=== PATIENT | female | born 1970 | race African-American/Black ===

== ENCOUNTER 2017-04-21 18:21 | Emergency (ER) | payer MEDICAID ==
[~2017-04-21] VITALS: Ht 162.6 cm; Wt 107.0 kg
[2017-04-21 18:24] VITALS: BP 177/97; PULSE 85; TEMP 97.9; O2SAT 98
[2017-04-21] MEDS ORDERED: CLIN1GEL (18:40)
[2017-04-21] MEDS ORDERED: SIMV10TA PO (18:40)
[2017-04-21] MEDS ORDERED: PARO20TA2 PO (18:40)
[2017-04-21] MEDS ORDERED: AMLO10TA2 PO (18:40)
[2017-04-21] MEDS ORDERED: ALLE10TA PO (18:40)
[2017-04-21] MEDS ORDERED: METO25TA3 PO (18:40)
--- NOTE | 2017-04-21 18:57 | PD ---
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 The patient denies fevers, chills, nausea, vomiting, abdominal pain, dysuria, hematuria, back pain. Last menstrual period 04/15/17. She endorses unprotected sex with a single male partner. She states she was treated for gonorrhea and chlamydia approximately one month ago. She states that her partner was treated at the same time. PFSH Past Medical History Depression: Yes High Cholesterol: Yes Hypertension: Yes ?: Not LMP: 04/11/17 Past Surgical History Surgical History: No Previous Surgery Social History Alcohol Use: Yes (OCC) Tobacco Use: No Substance Use: No Allergies-Medications (Allergen,Severity, Reaction): Coded Allergies: diphenhydramine (Verified Allergy, Severe, Swelling, 04/21/17) LIP SWELLING lisinopril (Verified Allergy, Severe, Swelling, 04/21/17) Reported Meds & Prescriptions Reported Meds & Active Scripts Active Reported Paroxetine (Paroxetine HCl) 20 Mg Tab 20 Mg PO DAILY Clinda-Benzoyl Perox 1-5% Pump (Clindamycin Phos/Benzoyl Perox) 1 %-5 % Gel.w.pump Allergy Relief (Loratadine) 10 Mg Tab 10 Mg PO DAILY PRN Amlodipine (Amlodipine Besylate) 10 Mg Tab 10 Mg PO DAILY Simvastatin 10 Mg Tab 10 Mg PO DAILY Metoprolol Tartrate 25 Mg Tab 25 Mg PO DAILY Review of Systems Except as stated in HPI: all other systems reviewed are Neg Physical Exam Narrative GENERAL: Well-nourished, well-developed black female in no acute distress. SKIN: Focused skin assessment warm/dry. HEAD: Normocephalic. EYES: No scleral icterus. No injection or drainage. NECK: Supple, trachea midline. No JVD or lymphadenopathy. CARDIOVASCULAR: Regular rate and rhythm without murmurs, gallops, or rubs. RESPIRATORY: Breath sounds clear and equal bilaterally. No accessory muscle use. GASTROINTESTINAL: Abdomen soft, non-tender, nondistended. No suprapubic tenderness. Active bowel sounds. GENITOURINARY: Normal external genitalia without lesions or erythema. Vaginal vault copious, thick, frothy white drainage.Cervical os was closed without drainage. No cervical motion tenderness. Uterus nontender and nonenlarged. Bilateral adnexa nontender without masses. MUSCULOSKELETAL: No cyanosis, or edema. BACK: Nontender without obvious deformity. No CVA tenderness. Data Data Last Documented VS Vital Signs Date Time Temp Pulse Resp B/P (MAP) Pulse Ox O2 Delivery O2 Flow Rate FiO2 04/21/17 19:38 04/21/17 18:24 97.9 85 98 Orders Orders Urinalysis - C+S If Indicated (04/21/17 18:27) Ed Urine Pregnancytest Poc (04/21/17 18:27) Wet Prep Profile (04/21/17 18:27) Gc And Chlamydia Pcr (04/21/17 18:27) Urine Culture (04/21/17 18:55) Ed Discharge Order (04/21/17 19:30) Labs Laboratory Tests Test 04/21/17 18:55 Urine Color LIGHT-YELLOW Urine Turbidity HAZY Urine pH 7.5 Urine Specific [place] 1.015 Urine Protein NEG mg/dL Urine Glucose (UA) NEG mg/dL Urine Ketones NEG mg/dL Urine Occult Blood NEG Urine Nitrite NEG Urine Bilirubin NEG Urine Urobilinogen LESS THAN 2.0 MG/DL Urine Leukocyte Esterase NEG Urine RBC 3 /hpf Urine WBC 2 /hpf Urine Squamous Epithelial Cells 5 /hpf Urine Bacteria MOD /hpf Urine Mucus FEW /lpf Microscopic Urinalysis Comment CULTURE INDICATED Clue Cells (Wet Prep) NONE SEEN Vaginal Trichomonas (Wet Prep) NONE SEEN Vaginal Yeast (Wet Prep) NONE SEEN MDM Medical Decision Making Medical Screen Exam Complete: Yes Emergency Medical Condition: Yes Differential Diagnosis STD versus UTI versus vaginal candidiasis versus other Narrative Course 46-year-old female with PMH of HTN presents to the ED for evaluation of 2 day history of vulvar itching and white vaginal discharge. The patient denies fevers, chills, nausea, vomiting, abdominal pain, dysuria, hematuria, back pain. Last menstrual period 04/15/17. She endorses unprotected sex with a single male partner. She states she was treated for gonorrhea and chlamydia approximately one month ago. She states that her partner was treated at the same time. Vitals reviewed. Physical exam reveals an obese white female in no acute distress. Abdominal exam is completely benign. Pelvic exam reveals thick white frothy discharge in the vaginal vault. Otherwise unremarkable. ED urine test negative. No culture indicated of the UA. Wet prep negative. GC and chlamydia pending. I recommended the patient be treated empirically for GC and Chlamydia but she refused. I informed the patient that this infection could affect her ability to have children. Patient still declined treatment. She is instructed to follow-up with [facility]. She is stable and discharged home. 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 Additional Instructions: It's likely that you have a recurrence of your gonorrhea and chlamydia. Abstain from sex, seek treatment and evaluation at the [facility]. Return to the ED for worsening symptoms or any urgent or emergent medical condition. Disposition: 01 DISCHARGE HOME Condition: Stable Eugenie Muir Apr 21, 2017 18:57
[2017-04-21 19:19] LABS: BACTERIA, URINE MOD /hpf; BILIRUBIN, URINE NEG (NEG); BLOOD, URINE NEG (NEG); GLUCOSE,URINE NEG (NEG); KETONE, URINE NEG (NEG); MUCUS URINE FEW /lpf (OCC); NITRITE,URINE NEG (NEG); PH, URINE 7.5 (5.0-8.5); SQUAMOUS EPITHELIAL CELL URINE 5 /hpf (0-5); URINE COLOR LIGHT-YELLOW (YELLW/STRAW); URINE LEUKOCYTE ESTERASE NEG (NEG)
== END 2017-04-21 19:45 | disposition home or self-care (01) ==
LOC: NEPD 18:21
DX: R82.71 Bacteriuria (principal); N89.8 Other specified noninflammatory disorders of vagina; L29.2 Pruritus vulvae; I10 Essential (primary) hypertension; E78.00 Pure hypercholesterolemia, unspecified; Z86.59 Personal history of other mental and behavioral disorders
CPT/HCPCS: 81001; 84703; 87086; 87210; 87491; 87591; 99284